=== PATIENT | female | born 1960 | race African-American/Black ===

== ENCOUNTER 2017-03-12 12:07 | Inpatient (IN) | payer OTHER ==
[2017-03-12 14:22] VITALS: BMI 21.0
--- NOTE | 2017-03-12 17:40 | HP ---
COWS - Scale Resting Pulse: 0= [place] 80 or Below Sweatin=Flushed/Facial Moisture Restless Observation: 3= Extraneous Movement Pupil Size: 2= Moderately Dilated Bone or Joint Aches: 2= Severe Diffuse Aches Runny Nose/ Eye Tearin= Runny Nose/Eyes GI Upset > 30mins: 3= Vomiting/Diarrhea Tremor Observation: 2= Slight Tremor Visible Yawning Observation: 2= >3x During Session Anxiety or Irritability: 2=Irritable/Anxious Goose Flesh Skin: 0=Smooth Skin COWS Score: 20 Admission ROS S - HPI Chief Complaint: I AM HERE BECAUSE I AM TIERED OF USING DRUGS Allergies/Adverse Reactions: Allergies Allergy/AdvReac Type Severity Reaction Status Date / Time No Known Allergies Allergy Verified 03/12/17 18:43 History of Present Illness: THIS 56 YEARS OLD FEMALE WITH HEROIN AND COCAINE DEPENDENCE,WITHDRAWAL SYMPTOM, LAST DETOX [facility] 11/27/13 TO 12/02/13 NICOTINE DEPENDENCE HIV SINCE 1989 LONGEST PERIOD OF SOBRIETY 5 YEARS - Ebola screening Have you traveled outside of the country in the last 21 days: No Have you had contact with anyone from an Ebola affected area: No Have you been sick,other than usual withdrawal symptoms: No Do you have a fever: No - Review of Systems Constitutional: Chills, Loss of Appetite, Malaise, Night Sweats, Changes in sleep, Weakness, Unintentional Wgt. Loss EENT: reports: Tearing, Nose Congestion Respiratory: reports: Other (ASTHMA) Cardiac: reports: No Symptoms Reported GI: reports: Diarrhea, Nausea, Vomiting, Abdominal cramping : reports: No Symptoms Reported Musculoskeletal: reports: Back Pain, Joint Pain, Muscle Pain Integumentary: reports: Dryness Neuro: reports: Headache, Tremors Endocrine: reports: No Symptoms Reported Hematology: reports: No Symptoms Reported, Other (HIV) Psychiatric: reports: Judgement Intact, Mood/Affect Appropiate, Orientated x3 Patient History - Patient Medical History Hx Anemia: Yes (ONIRON PILLS) Hx Asthma: Yes (Pt is on MDI) Hx Chronic Obstructive Pulmonary Disease (COPD): No Hx Cancer: No Hx Cardiac Disorders: No Hx Congestive Heart Failure: No Hx Hypertension: No Hx Hypercholesterolemia: No (DIET CONTRLLED) Hx Pacemaker: No HX Cerebrovascular Accident: No Hx Seizures: No Hx Dementia: No Hx Diabetes: No Hx Gastrointestinal Disorders: No Hx Liver Disease: No Hx Genitourinary Disorders: No Hx Sexually Transmitted Disorders: No Hx Renal Disease (ESRD): No Hx Thyroid Disease: No Hx Human Immunodeficiency Virus (HIV): Yes (SINCE 1989) Hx Hepatitis C: No Hx Depression: No Hx Suicide Attempt: No Hx Bipolar Disorder: No Hx Schizophrenia: No Other Medical History: NO SUICIDAL,NO HOMICIDAL - Patient Surgical History Past Surgical History: No - PPD History Previous Implant?: Yes Documented Results: Negative w/proof Implanted On Prior [facility] Admission?: Yes Date: 12/01/13 PPD to be Administered?: Yes - Reproductive History Patient is a Female of Child Bearing Age (11 -55 yrs old): No Patient : No - Smoking Cessation Smoking history: Current every day smoker Have you smoked in the past 12 months: Yes Aproximately how many cigarettes per day: 10 Hx Chewing Tobacco Use: No Initiated information on smoking cessation: Yes 'Breaking Loose' booklet given: 03/12/17 - Substance & Tx. History Hx Alcohol Use: No Hx Substance Use: Yes Substance Use Type: Cocaine, Heroin Hx Substance Use Treatment: Yes ([facility] 11/27/13 TO 12/02/13) - Substances Abused Heroin Route: Inhalation Frequency: Daily Amount used: 5 BAGS Age of first use: 33 Date of Last Use: 03/12/17 Crack Route: Smoking Frequency: Daily Amount used: 40$ Age of first use: 24 Date of Last Use: 03/12/17 Family Disease History - Family Disease History Family History: Denies Admission Physical Exam S - Vital Signs Vital Signs: Vital Signs - 24 hr 03/12/17 14:19 Temperature 96 F L Pulse Rate 71 Respiratory 18 Rate Blood Pressure 108/59 - Physical General Appearance: Yes: Moderate Distress, Tremorous, Irritable, Anxious HEENTM: Yes: Normal ENT Inspection, TRAY, Pharynx Normal Respiratory: Yes: Lungs Clear, Normal Breath Sounds, No Respiratory Distress Neck: Yes: Within Normal Limits, Supple, Trachea in good position Breast: Yes: Breast Exam Deferred Cardiology: Yes: Within Normal Limits, Regular Rhythm, Regular Rate, S1, S2 Abdominal: Yes: Within Normal Limits, Normal Bowel Sounds, Non Tender, Flat, Soft Genitourinary: Yes: Within Normal Limits Back: Yes: Muscle Spasm Musculoskeletal: Yes: Back pain, Joint Stiffness, Muscle Pain Extremities: Yes: Tremors Neurological: Yes: deboner II-XII NML intact, Fully Oriented, Alert, Motor Strength 5/5 Integumentary: Yes: Dry Lymphatic: Yes: Within Normal Limits - Diagnostic (1) Opioid dependence with withdrawal Current Visit: Yes Status: Acute (2) Cocaine dependence Current Visit: No Status: Active (3) Human immunodeficiency virus infection Current Visit: No Status: Active (4) Asthma Current Visit: No Status: Acute (5) Weight loss Current Visit: Yes Status: Acute (6) History of anemia Current Visit: Yes Status: Acute Cleared for Admission [facility] - Detox or Rehab [facility] Level of Care: Medically Managed Detox Regimen/Protocol: Methadone [facility] Breath Alcohol Content Breath Alcohol Content: 0 Urine Pregancy Test - Result Urine Test Results: Negative- NO Line Present Urine Drug Screen - Results Drug Screen Negative: No Urine Drug Screen Results: BALJEET-Cocaine, OPI-Opiates, MTD-Methadone
[2017-03-12] MEDS ORDERED: P-EPHED 60MG/TRIPROLIDI 2.5MG TABLET PO PRN (17:58)
[2017-03-12] MEDS ORDERED: MENTHOL/PHENOL 1 EACH UD MM PRN (17:58)
[2017-03-12] MEDS ORDERED: ACETAMINOPHEN 325 MG TABLET (FP) PO PRN (17:58)
[2017-03-12] MEDS ORDERED: MAG HYDROX/AL HYDROX/SIMETH 30 ML UNIT-DOSE CUP PO PRN (17:58)
[2017-03-12] MEDS ORDERED: METHADONE HCL 10 MG TABLET (FOR DETOX USE ONLY) PO ONE ×2 (17:58→23:00)
[2017-03-12] MEDS ORDERED: guaiFENesin/D-METHORPHAN HB 10 ML UNIT-DOSE CUPS PO PRN (17:58)
[2017-03-12] MEDS ORDERED: MAGNESIUM CITRATE 300 ML BOTTLE PO PRN (17:58)
[2017-03-12] MEDS ORDERED: LOPERAMIDE HCL 2 MG CAPSULE PO PRN (17:58)
[2017-03-12] MEDS ORDERED: MAGNESIUM HYDROX 2400MG/30ML ORAL SUSPENSION 30 ML CUP PO PRN (17:58)
[2017-03-12] MEDS ORDERED: ALBUTEROL SO4 6.7 GM HFA INHALER IH PRN (18:59)
--- NOTE | 2017-03-12 20:13 | PN ---
BHS Progress Note Note: nurse requests ppd
[2017-03-12] MEDS ORDERED: METHADONE HCL 10 MG TABLET (FOR DETOX USE ONLY) ONE (20:21)
[2017-03-12] MEDS: diazePAM 5 MG TABLET PO PRN (20:32)
[2017-03-12] MEDS: NICOTINE 21 MG/24 HOURS TOPICAL PATCH TD SCH (20:32)
[2017-03-12] MEDS: THIAMINE HCL 100 MG TABLET (FP) PO SCH (22:34)
[2017-03-12 22:44] LABS: URINE APPEARANCE CLEAR; URINE BILIRUBIN NEGATIVE (NEGATIVE); URINE COLOR LTYELLOW; URINE GLUCOSE (UA) NEGATIVE (NEGATIVE); URINE KETONE NEGATIVE (NEGATIVE); URINE NITRITE NEGATIVE (NEGATIVE); URINE PROTEIN NEGATIVE (NEGATIVE); URINE UROBILINOGEN NEGATIVE E.U./dl (0.2-1.0)
[2017-03-12 22:52] LABS: URINE BLOOD 1+ (NEGATIVE); URINE LEUK ESTERASE 3+ (NEGATIVE)
[2017-03-13] MEDS: IBUPROFEN 400 MG TABLET (FP) PO PRN (08:47)
[2017-03-13] MEDS ORDERED: PATIENT'S OWN MEDICATION (NON-FORMULARY) (Atazanavir Sulfate/Cobicistat [Evotaz 300 Mg-150 PO SCH (10:00)
[2017-03-13] MEDS ORDERED: METHADONE HCL 10 MG TABLET (FOR DETOX USE ONLY) PO ONE (10:00)
--- NOTE | 2017-03-13 10:09 | EKG ---
Test Reason : Blood Pressure : / mmHG Vent. Rate : 046 BPM Atrial Rate : 046 BPM P-R Int : 206 ms QRS Dur : 094 ms QT Int : 444 ms P-R-T Axes : 059 050 041 degrees QTc Int : 388 ms SINUS BRADYCARDIA OTHERWISE NORMAL ECG NO PREVIOUS ECGS AVAILABLE Confirmed by ADAM MONTESINOS MD ([id number]) on 03/13/2017 10:08:39 AM Referred By: Confirmed By:ADAM MONTESINOS MD
[2017-03-13 10:30] LABS: MCHC 31.7 g/dl (32.0-36.0); MEAN CELL VOLUME 75.9 fl (80-96); MEAN PLT VOLUME 9.4 fl (7.5-11.1); PLATELET COUNT 263 K/MM3 (134-434); RDW 15.1 % (11.6-15.6); WHITE BLOOD COUNT 4.4 K/mm3 (4.0-10.0)
[2017-03-13] MEDS: NICOTINE 21 MG/24 HOURS TOPICAL PATCH TD SCH (10:55)
[2017-03-13] MEDS: PRENATAL VITAMINS W/ FOLIC ACID TABLET (FP) PO SCH (10:55)
[2017-03-13] MEDS: diazePAM 5 MG TABLET PO PRN (10:57)
[2017-03-13 11:00] LABS: ALBUMIN 3.8 g/dl (3.4-5.0); BILIRUBIN,TOTAL 0.2 mg/dL (0.2-1.0); CALCIUM 9.7 mg/dL (8.5-10.1); COCKROFT - GAULT 38.8365; CREATININE 1.3 mg/dL (0.55-1.02)
[2017-03-13 11:01] LABS: TOT PROT 8.7 g/dl (6.4-8.2)
[2017-03-13] MEDS: FLUCONAZOLE PO SCH (14:42)
[2017-03-13] MEDS: LIDOCAINE 5% TOPICAL PATCH TP SCH (14:43)
[2017-03-13] MEDS: PATIENT'S OWN MEDICATION (NON-FORMULARY) (Dolutegravir Sodium 0 MG) PO SCH (14:43)
[2017-03-13] MEDS ORDERED: PT OWN MED (PYXIS) PO ONE (15:15)
[2017-03-13] MEDS ORDERED: EVOTAZ PO ONE (15:30)
--- NOTE | 2017-03-13 17:49 | PN ---
BHS COWS - Scale Resting Pulse: 0= [place] 80 or Below Sweatin= Chills/Flushing Restless Observation: 1= Difficult to Sit Still Pupil Size: 0= Normal to Room Light Bone or Joint Aches: 2= Severe Diffuse Aches Runny Nose/ Eye Tearin= Nasal Congestion GI Upset > 30mins: 1= Stomach Cramp Tremor Observation of Outstretched Hands: 2= Slight Tremor Visible Yawning Observation: 1= 1-2x During Session Anxiety or Irritability: 2=Irritable/Anxious Goose Flesh Skin: 3=Piloerection COWS Score: 14 BHS Progress Note (SOAP) Subjective: Stomach Cramping, Body aches, Sweating, Interrupted sleep. Objective: PT. A & O X 3, OBSERVED AMBULATING ON UNIT. 03/13/17 17:45 Vital Signs Temperature 97.5 F L 03/13/17 14:36 Pulse Rate 52 L 03/13/17 14:36 Respiratory Rate 16 03/13/17 14:36 Blood Pressure 105/53 03/13/17 14:36 O2 Sat by Pulse Oximetry (%) Laboratory Last Values WBC 4.4 K/mm3 (4.0-10.0) 03/13/17 06:16 RBC 4.38 M/mm3 (3.60-5.2) 03/13/17 06:16 Hgb 10.5 GM/dL (10.7-15.3) L 03/13/17 06:16 Hct 33.2 % (32.4-45.2) 03/13/17 06:16 MCV 75.9 fl (80-96) L 03/13/17 06:16 MCHC 31.7 g/dl (32.0-36.0) L 03/13/17 06:16 RDW 15.1 % (11.6-15.6) 03/13/17 06:16 Plt Count 263 K/MM3 (134-434) D 03/13/17 06:16 MPV 9.4 fl (7.5-11.1) D 03/13/17 06:16 Sodium 140 mmol/L (136-145) 03/13/17 06:16 Potassium 4.4 mmol/L (3.5-5.1) 03/13/17 06:16 Chloride 108 mmol/L (98-107) H 03/13/17 06:16 Carbon Dioxide 26 mmol/L (21-32) 03/13/17 06:16 Anion Gap 6 (8-16) L 03/13/17 06:16 BUN 17 mg/dL (7-18) 03/13/17 06:16 Creatinine 1.3 mg/dL (0.55-1.02) H 03/13/17 06:16 Creat Clearance w eGFR 42.07 (>60) 03/13/17 06:16 Random Glucose 66 mg/dL (74-106) L 03/13/17 06:16 Calcium 9.7 mg/dL (8.5-10.1) 03/13/17 06:16 Total Bilirubin 0.2 mg/dL (0.2-1.0) 03/13/17 06:16 AST 15 U/L (15-37) 03/13/17 06:16 ALT 15 U/L (12-78) 03/13/17 06:16 Alkaline Phosphatase 71 U/L (45-117) 03/13/17 06:16 Total Protein 8.7 g/dl (6.4-8.2) H 03/13/17 06:16 Albumin 3.8 g/dl (3.4-5.0) 03/13/17 06:16 Urine Color Ltyellow 03/12/17 21:30 Urine Appearance Clear 03/12/17 21:30 Urine pH 5.0 (5.0-8.0) 03/12/17 21:30 Ur Specific [place] 1.013 (1.001-1.035) 03/12/17 21:30 Urine Protein Negative (NEGATIVE) 03/12/17 21:30 Urine Glucose (UA) Negative (NEGATIVE) 03/12/17 21:30 Urine Ketones Negative (NEGATIVE) 03/12/17 21:30 Urine Blood 1+ (NEGATIVE) H 03/12/17 21:30 Urine Nitrite Negative (NEGATIVE) 03/12/17 21:30 Urine Bilirubin Negative (NEGATIVE) 03/12/17 21:30 Urine Urobilinogen Negative E.U./dl (0.2-1.0) 03/12/17 21:30 Ur Leukocyte Esterase 3+ (NEGATIVE) H 03/12/17 21:30 RPR Titer Nonreactive (NONREACTIVE) 03/13/17 06:16 LABS NOTED. PATIENT'S CURRENT HIV DAILY MEDICATION REGIMEN (TIVICAY, EVOTAZ) CONFIRMED BY BOTH PATIENT AND BY PATIENT'S PHARMACY ([facility], [place], [place]). 03/13/17 17:46 03/13/17 17:48 Assessment: 03/13/17 17:46 WITHDRAWAL SYMPTOMS. 03/13/17 17:48 Plan: CONTINUE DETOX. ADVISED PATIENT TO FOLLOW-UP WITH [facility] / REHAB MEDICAL PROVIDER AFTER DISCHARGE FROM DETOX FOR GENERAL MEDICAL ASSESSMENT AND FOR ABNORMAL ADMISSION LAB VALUES AND FOR EVALUATION OF HIV TREATMENT.
[2017-03-13] MEDS: THIAMINE HCL 100 MG TABLET (FP) PO SCH (22:35)
[2017-03-13] MEDS: diphenhydrAMINE HCL 50 MG CAPSULE PO PRN (22:35)
--- NOTE | 2017-03-14 09:52 | PN ---
BHS COWS - Scale Resting Pulse: 0= [place] 80 or Below Sweatin=Flushed/Facial Moisture Restless Observation: 1= Difficult to Sit Still Pupil Size: 0= Normal to Room Light Bone or Joint Aches: 2= Severe Diffuse Aches Runny Nose/ Eye Tearin= Runny Nose/Eyes GI Upset > 30mins: 2= Nausea/Diarrhea Tremor Observation of Outstretched Hands: 2= Slight Tremor Visible Yawning Observation: 1= 1-2x During Session Anxiety or Irritability: 2=Irritable/Anxious Goose Flesh Skin: 0=Smooth Skin COWS Score: 14 BHS Progress Note (SOAP) Subjective: Anxiety,tremors,sweating,interrupted sleep,restless Objective: 03/14/17 09:51 Vital Signs - 8 hr 03/14/17 03/14/17 03:30 06:00 Temperature 97.3 F L Pulse Rate 51 L Respiratory 18 16 Rate Blood Pressure 127/70 Laboratory Tests 03/12/17 03/13/17 03/13/17 21:30 06:16 06:16 WBC 4.4 RBC 4.38 Hgb 10.5 L Hct 33.2 MCV 75.9 L MCHC 31.7 L RDW 15.1 Plt Count 263 D MPV 9.4 D Sodium 140 Potassium 4.4 Chloride 108 H Carbon Dioxide 26 Anion Gap 6 L BUN 17 Creatinine 1.3 H Creat Clearance w eGFR 42.07 Random Glucose 66 L Calcium 9.7 Total Bilirubin 0.2 AST 15 ALT 15 Alkaline Phosphatase 71 Total Protein 8.7 H Albumin 3.8 Urine Color Ltyellow Urine Appearance Clear Urine pH 5.0 Ur Specific [place] 1.013 Urine Protein Negative Urine Glucose (UA) Negative Urine Ketones Negative Urine Blood 1+ H Urine Nitrite Negative Urine Bilirubin Negative Urine Urobilinogen Negative Ur Leukocyte Esterase 3+ H RPR Titer 03/13/17 06:16 WBC RBC Hgb Hct MCV MCHC RDW Plt Count MPV Sodium Potassium Chloride Carbon Dioxide Anion Gap BUN Creatinine Creat Clearance w eGFR Random Glucose Calcium Total Bilirubin AST ALT Alkaline Phosphatase Total Protein Albumin Urine Color Urine Appearance Urine pH Ur Specific [place] Urine Protein Urine Glucose (UA) Urine Ketones Urine Blood Urine Nitrite Urine Bilirubin Urine Urobilinogen Ur Leukocyte Esterase RPR Titer Nonreactive labs noted Assessment: 03/14/17 09:51 Withdrawal sx. Plan: Continue detox
[2017-03-14] MEDS ORDERED: METHADONE HCL 5 MG TABLET (FOR DETOX USE ONLY) PO ONE (10:00)
[2017-03-14] MEDS: PRENATAL VITAMINS W/ FOLIC ACID TABLET (FP) PO SCH (10:26)
[2017-03-14] MEDS: PATIENT'S OWN MEDICATION (NON-FORMULARY) (Dolutegravir Sodium 0 MG) PO SCH (10:27)
[2017-03-14] MEDS: PATIENT'S OWN MEDICATION (NON-FORMULARY) (Atazanavir Sulfate/Cobicistat [Evotaz 300 Mg-150 PO SCH (10:27)
[2017-03-14] MEDS: FLUCONAZOLE PO SCH (10:27)
[2017-03-14] MEDS: LIDOCAINE 5% TOPICAL PATCH TP SCH (10:28)
[2017-03-14] MEDS: NICOTINE 21 MG/24 HOURS TOPICAL PATCH TD SCH (10:28)
[2017-03-14] MEDS: THIAMINE HCL 100 MG TABLET (FP) PO SCH (22:13)
[2017-03-14] MEDS: diphenhydrAMINE HCL 50 MG CAPSULE PO PRN (22:14)
[2017-03-14] MEDS: diazePAM 5 MG TABLET PO PRN (22:14)
[2017-03-15] MEDS: IBUPROFEN 400 MG TABLET (FP) PO PRN (07:46)
[2017-03-15] MEDS ORDERED: METHADONE HCL 5 MG TABLET (FOR DETOX USE ONLY) PO ONE (10:00)
[2017-03-15] MEDS: PRENATAL VITAMINS W/ FOLIC ACID TABLET (FP) PO SCH (10:38)
[2017-03-15] MEDS: diazePAM 5 MG TABLET PO PRN (10:38)
[2017-03-15] MEDS: PATIENT'S OWN MEDICATION (NON-FORMULARY) (Atazanavir Sulfate/Cobicistat [Evotaz 300 Mg-150 PO SCH (10:40)
[2017-03-15] MEDS: FLUCONAZOLE PO SCH (10:40)
[2017-03-15] MEDS: PATIENT'S OWN MEDICATION (NON-FORMULARY) (Dolutegravir Sodium 0 MG) PO SCH (10:40)
[2017-03-15] MEDS: LIDOCAINE 5% TOPICAL PATCH TP SCH (10:40)
[2017-03-15] MEDS: NICOTINE 21 MG/24 HOURS TOPICAL PATCH TD SCH (10:40)
[2017-03-15] MEDS ORDERED: IBUPROFEN 600 MG TABLET (FP) PO PRN (11:09)
--- NOTE | 2017-03-15 11:09 | PN ---
BHS Progress Note (SOAP) Subjective: back and leg pain sweats interrupted sleep Objective: 03/15/17 11:07 Vital Signs Temperature 96.4 F L 03/15/17 09:39 Pulse Rate 81 03/15/17 09:39 Respiratory Rate 18 03/15/17 09:39 Blood Pressure 126/88 03/15/17 09:39 O2 Sat by Pulse Oximetry (%) awake/alert ambulating no acute distress Assessment: 03/15/17 11:08 withdrawal sx Plan: continue detox increase fluids lidocaine patch motrin prn analgesic balm
[2017-03-15] MEDS: METHYL SALICYLATE/MENTHOL OINT 30 GM TUBE TP SCH ×2 (12:46→22:06)
[2017-03-15] MEDS: THIAMINE HCL 100 MG TABLET (FP) PO SCH (22:05)
[2017-03-15] MEDS: diphenhydrAMINE HCL 50 MG CAPSULE PO PRN (22:05)
[2017-03-16] MEDS: hydrOXYzine PAMOATE 25 MG CAPSULE (FP) PO PRN ×2 (07:07→10:34)
[2017-03-16] MEDS ORDERED: METHADONE HCL 10 MG TABLET (FOR DETOX USE ONLY) PO ONE (10:00)
[2017-03-16] MEDS: PRENATAL VITAMINS W/ FOLIC ACID TABLET (FP) PO SCH (10:34)
[2017-03-16] MEDS: PATIENT'S OWN MEDICATION (NON-FORMULARY) (Dolutegravir Sodium 0 MG) PO SCH (10:35)
[2017-03-16] MEDS: FLUCONAZOLE PO SCH (10:35)
[2017-03-16] MEDS: METHYL SALICYLATE/MENTHOL OINT 30 GM TUBE TP SCH (10:36)
[2017-03-16] MEDS: PATIENT'S OWN MEDICATION (NON-FORMULARY) (Atazanavir Sulfate/Cobicistat [Evotaz 300 Mg-150 PO SCH (10:36)
[2017-03-16] MEDS: NICOTINE 21 MG/24 HOURS TOPICAL PATCH TD SCH (10:37)
[2017-03-16] MEDS: LIDOCAINE 5% TOPICAL PATCH TP SCH (10:37)
--- NOTE | 2017-03-16 10:47 | PN ---
BHS Progress Note (SOAP) Subjective: interrupted sleep, sweats, , neck, back pain. Objective: 03/16/17 10:45 Vital Signs Temperature 97.2 F L 03/16/17 09:53 Pulse Rate 78 03/16/17 09:53 Respiratory Rate 16 03/16/17 09:53 Blood Pressure 158/89 03/16/17 09:53 O2 Sat by Pulse Oximetry (%) Laboratory Tests 03/12/17 03/13/17 03/13/17 21:30 06:16 06:16 WBC 4.4 RBC 4.38 Hgb 10.5 L Hct 33.2 MCV 75.9 L MCHC 31.7 L RDW 15.1 Plt Count 263 D MPV 9.4 D Sodium 140 Potassium 4.4 Chloride 108 H Carbon Dioxide 26 Anion Gap 6 L BUN 17 Creatinine 1.3 H Creat Clearance w eGFR 42.07 Random Glucose 66 L Calcium 9.7 Total Bilirubin 0.2 AST 15 ALT 15 Alkaline Phosphatase 71 Total Protein 8.7 H Albumin 3.8 Urine Color Ltyellow Urine Appearance Clear Urine pH 5.0 Ur Specific [place] 1.013 Urine Protein Negative Urine Glucose (UA) Negative Urine Ketones Negative Urine Blood 1+ H Urine Nitrite Negative Urine Bilirubin Negative Urine Urobilinogen Negative Ur Leukocyte Esterase 3+ H RPR Titer 03/13/17 06:16 WBC RBC Hgb Hct MCV MCHC RDW Plt Count MPV Sodium Potassium Chloride Carbon Dioxide Anion Gap BUN Creatinine Creat Clearance w eGFR Random Glucose Calcium Total Bilirubin AST ALT Alkaline Phosphatase Total Protein Albumin Urine Color Urine Appearance Urine pH Ur Specific [place] Urine Protein Urine Glucose (UA) Urine Ketones Urine Blood Urine Nitrite Urine Bilirubin Urine Urobilinogen Ur Leukocyte Esterase RPR Titer Nonreactive pt aox3 lying in bed in nad Assessment: 03/16/17 10:45 withdrawal sx;s Plan: cont. detox increase fluids analgesic balm d/c in am
[2017-03-17] MEDS: METHYL SALICYLATE/MENTHOL OINT 30 GM TUBE TP SCH (00:02)
[2017-03-17] MEDS: THIAMINE HCL 100 MG TABLET (FP) PO SCH (00:02)
[2017-03-17] MEDS: diphenhydrAMINE HCL 50 MG CAPSULE PO PRN (01:03)
[2017-03-17] MEDS ORDERED: METHADONE HCL 5 MG TABLET (FOR DETOX USE ONLY) PO ONE (06:00)
[2017-03-17 06:51] VITALS: BP 92/60; PULSE 65; TEMP 97.3
--- NOTE | 2017-03-17 09:24 | DS ---
[facility] Detox Discharge Summary Admission Date: 03/12/17 Discharge Date: 03/17/17 - History Present History: Alcohol Dependence, Cocaine Dependence, Opioid Dependence - Physical Exam Results Vital Signs: Vital Signs Temperature 97.3 F L 03/17/17 06:51 Pulse Rate 65 03/17/17 06:51 Respiratory Rate 16 03/17/17 06:51 Blood Pressure 92/60 03/17/17 06:51 O2 Sat by Pulse Oximetry (%) - Treatment Hospital Course: Detox Protocol Followed, Detoxed Safely, Responded well, Discharged Condition Good, Rehab Referral Accepted - Medication Discharge Medications: Ambulatory Orders Albuterol Sulfate Inhaler - [Ventolin Hfa Inhaler -] 2 inh PO Q6H 03/12/17 Atazanavir Sulfate/Cobicistat [Evotaz 300 mg-150 mg Tablet] 1 each PO DAILY Dolutegravir Sodium [Tivicay] 50 mg PO DAILY 03/12/17 Fluconazole [Diflucan -] 200 mg PO DAILY 03/12/17 - Diagnosis (1) History of anemia Current Visit: Yes Status: Suspected (2) Opioid dependence with withdrawal Current Visit: Yes Status: Chronic (3) Weight loss Current Visit: Yes Status: Acute (4) Alcohol dependence Current Visit: Yes Status: Chronic (5) Cocaine dependence Current Visit: No Status: Active (6) Human immunodeficiency virus infection Current Visit: Yes Status: Chronic (7) Asthma Current Visit: Yes Status: Chronic
== END 2017-03-17 09:58 | disposition home or self-care (01) | DRG 897 ==
LOC: YASAS 12:07 → Y6N 19:11
PROVIDERS: ADMIT Internal Medicine; ATTEND Internal Medicine
PROC: HZ2ZZZZ Detoxification Services for Substance Abuse Treatment (ICD-10-PCS; principal; 2017-03-12)
DX: F19.230 Other psychoactive substance dependence with withdrawal, uncomplicated (principal); F14.20 Cocaine dependence, uncomplicated; F11.23 Opioid dependence with withdrawal; F17.210 Nicotine dependence, cigarettes, uncomplicated; J45.909 Unspecified asthma, uncomplicated; Z21 Asymptomatic human immunodeficiency virus [HIV] infection status; D64.9 Anemia, unspecified; Z87.898 Personal history of other specified conditions
CPT/HCPCS: 36415; 80053; 81003; 81015; 85027; 86593; 93005; 93010